=== PATIENT | male | born 1980 | race Caucasian/White ===

== ENCOUNTER 2019-11-17 07:05 | Outpatient (CLI) | payer OTHER, SELFPAY ==
[2019-11-17 07:16] LABS: HCT 47.1 % (40.0-50.0); HGB 16.2 g/dL (13.5-17.5); Mean Corp. HGB Concentration 34.4 g/dL (32.0-36.0); Mean Corpuscular Hemoglobin 31.2 pg (27.0-33.0); Mean Corpuscular Volume 90.6 fL (80-95); Mean Platelet Volume 9.6 fL (8.0-11.0); Platelet Count 188 x1000/uL (130-400); RBC Distribution Width 12.9 % (11.8-14.1); White Blood Cell Count 5.21 k/cumm (4.4-10.8)
[2019-11-17 08:46] LABS: ALT 24 U/L (16-63); AST 25 U/L (15-37); Albumin 4.1 g/dL (3.4-5.0); Alkaline Phosphatase 83 U/L (46-116); Anion Gap 6.7 mmol/L (3-11); BUN 19 mg/dL (7-18); CO2 30.3 mmol/L (21.0-32.0); CREATININE 1.07 mg/dL (0.70-1.30); Calcium 8.6 mg/dL (8.5-10.1); Calculated LDL 174 mg/dL (<100); Chloride 104 mmol/L (98-107); Cholesterol 258 mg/dL (<200); Glucose 104 mg/dL (74-106); HDL Cholesterol 51 mg/dL (40-60); Potassium 4.6 mmol/L (3.5-5.1); Sodium 141 mmol/L (136-145); Total Protein 7.1 g/dL (6.4-8.2); Triglyceride 168 mg/dL (<150)
== END 2019-11-17 07:25 ==
PROVIDERS: PCP Nurse Practitioner; Visit Provider Nurse Practitioner
DX: F32.9 Major depressive disorder, single episode, unspecified (principal); F41.9 Anxiety disorder, unspecified; Z13.220 Encounter for screening for lipoid disorders
CPT/HCPCS: 36415; 80053; 80061; 85027

== ENCOUNTER 2021-08-18 07:24 | Emergency (ER) | payer OTHER, SELFPAY ==
[2021-08-18 07:29] VITALS: BP 137/91; PULSE 71; RESP 18; TEMP 36.9; O2SAT 97
[2021-08-18 08:15] LABS: Abs Immature Grans 0.03 10^3/uL (0.0-0.06); Absolute Basophil Count 0.04 10^3/uL (0.0-0.2); Absolute Eosinophil Count 0.23 10^3/uL (0.0-0.7); Absolute Lymphocyte Count 1.57 10^3/uL (1.2-3.4); Absolute Monocyte Count 0.75 10^3/uL (0.1-0.8); Absolute Neutrophil Count 6.38 10^3/uL (1.2-6.7); Basophils % 0.4; Eosinophils % 2.6; HCT 46.7 % (40.0-50.0); HGB 15.5 g/dL (13.5-17.5); Immature Grans % 0.3; Lymphocytes % 17.4; MCH 30.6 pg (27.0-33.0); MCHC 33.2 % (32.0-36.0); MCV 92.1 fL (80-95); MPV 9.9 fL (8.0-11.0); Monocytes % 8.3; Nucleated RBC 0 %; Platelet Count 173 10^3/uL (130-400); RBC 5.07 10^6/uL (4.36-5.78); RDW 11.9 % (11.8-14.1); RDW-SD 40.4 fL
[2021-08-18 08:18] LABS: Bilirubin Negative (Negative); Blood Moderate (Negative); Clarity Clear (Clear); Glucose Negative (Negative); Ketones Negative (Negative); Leukocyte Esterase Negative (Negative); Nitrite Negative (Negative); Urobilinogen 0.2 EU/dL (Up TO 0.2)
--- NOTE | 2021-08-18 08:23 | W.ED.GENAD ---
Discharge Plan Disposition Patient Disposition: HOME Condition: Improving Discharge Details Clinical Impression: Ureterolithiasis, Creatinine elevation Primary Care Provider: Mariam Carlos ED Provider: Alejandra Nur Home Meds and New Rx's Prescriptions: No Action escitalopram oxalate 10 mg tablet 10 mg PO DAILY Qty: 30 RF: 2 Discharge Instructions Instructions: Kidney Stones (ED), Impaired Kidney Function (ED) Additional Instructions: Please return immediately to the emergency department if you develop any new or worsening symptoms, if your condition does not improve as expected, or if you become otherwise concerned. It is extremely important that you call soon as possible to make an appointment to be seen in follow-up for this visit by your primary care doctor. Please do not take Advil, Aleve, or any NSAIDs until you are cleared to do so by your primary care doctor. Referrals: Mariam Carlos, [employer] [Primary Care Provider] - Medical Decision Making Neftali Gomez is a 41 y/o man with a history of kidney stones in the past presenting to emergency department with continued flank pain after being diagnosed with 5 mm left-sided ureterolithiasis by CT scan on 08/14/2021 at [facility] emergency department. On exam patient is well and nontoxic-appearing. Patient does not appear to be in any discomfort. There is no abdominal tenderness to palpation. Concern for possible creatinine elevation with significant Toradol intake, ureterolithiasis not spontaneously passing now with a 5, other. Doubt UTI. Exam/history at this time is not consistent with acute aortic pathology, sepsis, acute emergent intra-abdominal etiology, testicular pathology. Plan for IV placement, screening labs, UA, will discuss patient with Dr. Lai of urology, attempt to obtain records from [facility]. [facility] records obtained, impression from CT abdomen/pelvis 08/14/2021: Obstructing 5 mm distal left ureter calculus with moderate left hydroureter and mild left pelviectasis. Left perinephric edema. This likely represents sequelae of obstruction. Please correlate for evidence of urinary tract infection. Labs reviewed, creatinine 1.6, WBC 9.0, UA shows 3-5 RBCs negative urine WBC negative nitrate. Concern for creatinine elevated secondary to Toradol use. I discussed patient presentation results with Gaby Vale of urology, who requested renal ultrasound for comparison of hydronephrosis to prior CT scan, agrees no further NSAIDs. Renal ultrasound negative for hydronephrosis. Patient reports that he has been pain-free during his entire ED visit at this time, which is highly unusual given severity of pain and frequency of needing pain meds prior to this morning. Suspect at this point, particularly given resolution of hydronephrosis, that patient has passed stone. Plan for outpatient follow-up with urology and PCP, instructions given for no NSAID use. I had a discussion with Patient regarding return to emergency department precautions, home care, and importance of outpatient follow-up. Pt verbalizes understanding of the plan and is amenable. Patient discharged to home with clear plan for outpatient follow-up. All questions were answered. Disposition decision was made weighing the risks and benefits of hospitalization versus outpatient treatment, the risk for further decompensation, and the patient's wishes. Medical Records Medical records reviewed: Yes I reviewed the patient's medical records. Imaging Data Radiologic Study: Attestation: I personally reviewed and interpreted this imaging study as follows: Radiologist's impression: EXAM: US RENAL CLINICAL HISTORY: known left ureterolithiasis TECHNIQUE: Ultrasound of both kidneys performed using standard protocol. COMPARISON: No exams were available for comparison FINDINGS: KIDNEYS: The left kidney measures 13.2 cm in the right kidney 10.7 cm. Both kidneys exhibit cortical thickness and corticomedullary differentiation. No cysts nor masses. No hydronephrosis nor perinephric fluid. No calculi seen in the kidneys. No solid renal masses. URINARY BLADDER: Prevoid volume is only 10.3 cc No evidence of bladder mass nor diverticuli. Ureterovesical jets: Both identified and appear symmetrical IMPRESSION: 1. No significant ultrasound findings in the kidneys. 2. No calculi seen in either kidney and no hydronephrosis. Also no calculi evident in the nondistended urinary bladder. Lab Data Lab results reviewed: Yes I reviewed the patient's lab results. Labs: Laboratory Tests Range/Units 08/18/21 08/18/21 08/18/21 08:00 08:00 08:00 WBC (4.4-10.8) 10^3/uL 9.00 RBC (4.36-5.78) 10^6/uL 5.07 Hgb (13.5-17.5) g/dL 15.5 Hct (40.0-50.0) % 46.7 MCV (80-95) fL 92.1 MCH (27.0-33.0) pg 30.6 MCHC (32.0-36.0) % 33.2 RDW (11.8-14.1) % 11.9 Plt Count (130-400) 10^3/uL 173 MPV (8.0-11.0) fL 9.9 Immature Gran % 0.3 Neutrophils % 71.0 Lymphocytes % 17.4 Monocytes % 8.3 Eosinophils % 2.6 Basophils % 0.4 Nucleated RBC % % 0 Absolute Neutrophils (1.2-6.7) 10^3/uL 6.38 Absolute Lymphocytes (1.2-3.4) 10^3/uL 1.57 Absolute Monocytes (0.1-0.8) 10^3/uL 0.75 Absolute Eosinophils (0.0-0.7) 10^3/uL 0.23 Absolute Basophils (0.0-0.2) 10^3/uL 0.04 Sodium (136-145) mmol/L 139 Potassium (3.5-5.1) mmol/L 4.4 Chloride (98-107) mmol/L 104 Carbon Dioxide (21.0-32.0) mmol/L 28.7 Anion Gap (3-11) mmol/L 6.3 BUN (7-18) mg/dL 19 H Creatinine (0.70-1.30) mg/dL 1.6 H Estimated GFR/1.73 m2 (mL/min/1.73m2) 47.64 Glucose (74-106) mg/dL 102 Calcium (8.5-10.1) mg/dL 9.0 Total Bilirubin (0.2-1.0) mg/dL 1.0 AST (15-37) U/L 23 ALT (16-63) U/L 20 Alkaline Phosphatase (46-116) U/L 65 Total Protein (6.4-8.2) g/dL 7.1 Albumin (3.4-5.0) g/dL 3.7 Urine Color (Yellow) Straw Urine Clarity (Clear) Clear Urine pH (5-8) 6.0 Ur Specific Milton (1.005-1.025) 1.010 Urine Protein (Negative) mg/dL Negative Urine Ketones (Negative) mg/dL Negative Urine Blood (Negative) Moderate H Urine Nitrite (Negative) Negative Urine Bilirubin (Negative) Negative Urine Urobilinogen (Up TO 0.2) EU/dL 0.2 Ur Leukocyte Esterase (Negative) Negative Urine RBC (0-2) HPF 3-5 H Urine WBC (0-5) HPF Negative Ur Epithelial Cells (Negative) HPF Rare Urine Crystals (Negative) HPF Negative Urine Bacteria (Negative) HPF Negative Urine Casts (Negative) LPF Negative Urine Mucus (Negative) Negative Ur Culture Indicated? No Urine Glucose (Negative) mg/dL Negative HPI General Mode of arrival: ambulatory. Date/Time Provider Initiated Documentation: 08/18/21 07:34. Limitations to Documentation: no limitations. Information obtained by: patient, family, RN notes reviewed and old records reviewed. HPI Narrative: Neftali Gomez is a 41-year-old man with reported history of anxiety presenting to emergency department with flank pain, known kidney stone. Patient is accompanied by his . Patient reports that on 08/14 he developed left-sided inguinal pain, and presented to the [facility] emergency department. Patient has had 2 kidney stones in the past 5 years, and believes the pain was from another kidney stone. Patient underwent CT scan at [facility] demonstrating 5 mm stone, was discharged home on p.o. Toradol. Patient reports that his Toradol was prescribed for every 6 hours, however he has been taking it every 4 hours due to severity of pain when medication wears off. Patient reports that medication has been controlling pain well. He reports that he last took Toradol approximately 5 hours ago, pain is currently 1 out of 10, but states that he has run out of Toradol and presented to the emergency department for Toradol refill. Has also been taking Tylenol for pain, not taking any other meds. Patient reports that at initial onset pain was in his left inguinal area, has since migrated to his left flank. He denies any other pain. Had vomiting with onset of pain, has not had vomiting for past 2 days. Has been hydrating well at home per his report. Patient reports that he had some mild diarrhea yesterday. He denies cough, shortness of breath, numbness, weakness, rash, swelling, dysuria, testicular pain/swelling. He denies recreational drug use, tobacco/nicotine use. Patient reports that he drinks 3-6 beers per night, however has not been drinking since onset of pain/being diagnosed with kidney stone. Related Data Home Medications Medication Instructions Recorded Confirmed escitalopram oxalate 10 mg tablet 10 mg PO DAILY #30 tab 07/15/21 08/18/21 Previous Rx's Medication Instructions Recorded escitalopram oxalate 10 mg tablet 10 mg PO DAILY #30 tab 07/15/21 Allergies Allergy/AdvReac Type Severity Reaction Status Date / Time sertraline [From Zoloft] AdvReac Cognitive Verified 08/18/21 07:34 General Stated Complaint: Urinary TRINO: 3 Review of Systems Narrative: Constitutional: denies fevers Eyes: denies eye pain ENT: denies ear pain, dental pain, sore throat Cardiovascular: denies chest pain, edema Respiratory: denies SOB, cough GI: denies abdominal pain, vomiting, diarrhea : Reports left-sided flank pain, denies scrotal/testicular pain or swelling MSK: denies back pain, neck pain, arthralgias, myalgias Skin: denies rash Neuro: denies headaches, numbness, weakness PFSH All Active Problems (Updated 08/18/21 @ 12:59 by Alejandra Nur MD) Ureterolithiasis (Acute) Creatinine elevation (Acute) Bilateral carpal tunnel syndrome (Acute) Cubital tunnel syndrome on right (Acute) Cubital tunnel syndrome on left (Acute) Medial epicondylitis of left elbow (Acute) Medial epicondylitis of right elbow (Acute) Bilateral elbow joint pain (Acute) Hyperlipidemia (Acute) BABATUNDE (obstructive sleep apnea) (Chronic) Family history of heart disease (Acute) Depression (Chronic) Encounter to establish care (Acute) Adjustment disorder with mixed anxiety and depressed mood (Chronic) Obstructive sleep apnea (Chronic) Medical History Hyperextension injury of right knee (10/08/17) Family History (Updated 04/15/20 @ 13:10 by Gabbi Canales RN) Father Alcohol abuse Heart disease Sister Cancer Other Depression Social History Smoking/Tobacco Use Status: Former Tobacco Use Tobacco: How many years used: 15 Second Hand Exposure: No Smoking risk assessment performed?: Yes Alcohol Intake: current Alcohol Intake frequency: 3 or more drinks per day Alcohol type: beer Drug use: Never Substance use type: does not use Adopted: No Caregiver/Support person: No Foster care: No Household members: spouse and children Housing: house Do you need help understanding health information?: Rarely current occupation: [employer] Sexually active: Yes Do you think of yourself as: straight/heterosexual Current gender identity: male What is your relationship status?: How often do you talk on the phone with friends or family?: three or more times per week How often do you get together with friends or relatives?: once per week How often do you attend confucianist or confucianist services?: 1-3 times per year Do you belong to any clubs or organized social groups?: no Panel score (0-1 are the most socially isolated patients): 2 Cristina/Rastafari: Scientology Seatbelt use: always Helmet use: Yes Helmet use: sometimes Drive intox or ride w/intox putaway driver: No Do you feel safe at home: Yes Do you feel safe in your relationship?: Yes Exam Narrative Exam Narrative: Constitutional: well and [id number], pleasant, conversing normally HENT: head atraumatic/normocephalic/normal inspection, mucous membranes moist Eyes: conjunctiva normal, sclera normal, pupils 3mm b/l Neck: no stridor, normal ROM, trachea midline Resp: normal work of breathing, speaking in full sentences Cardio: normal rate, normal rhythm GI: abdomen soft, non-tender, non-distended Skin: warm, dry, normal color, no rash Neuro: alert, not altered, grossly non-focal, normal tone Ext: no edema Psych: normal mood, normal affect, normal behavior Course Vital Signs Vital signs: Vital Signs Temperature 36.9 C 08/18/21 07:29 Pulse 71 08/18/21 07:29 Respiratory Rate 18 08/18/21 07:29 Blood Pressure 137/91 H 08/18/21 07:29 Pulse Oximetry 97 08/18/21 07:29 Temperature 36.9 C 08/18/21 07:29 Temperature Source Temporal Artery Scan 08/18/21 07:29 Pulse 71 08/18/21 07:29 Respiratory Rate 18 08/18/21 07:29 Respiratory Effort Non-Labored 08/18/21 07:35 Blood Pressure 137/91 H 08/18/21 07:29 Blood Pressure Position Sitting 08/18/21 07:29 Pulse Oximetry 97 08/18/21 07:29 Oxygen Delivery Method Room Air 08/18/21 07:29 Oxygen Flow Rate 0 08/18/21 07:29 Pain Level 1 08/18/21 07:45 Lab/Test Results Lab/Test Results: Laboratory Tests Range/Units 08/18/21 08/18/21 08:00 08:00 WBC (4.4-10.8) 10^3/uL 9.00 RBC (4.36-5.78) 10^6/uL 5.07 Hgb (13.5-17.5) g/dL 15.5 Hct (40.0-50.0) % 46.7 MCV (80-95) fL 92.1 MCH (27.0-33.0) pg 30.6 MCHC (32.0-36.0) % 33.2 RDW (11.8-14.1) % 11.9 Plt Count (130-400) 10^3/uL 173 MPV (8.0-11.0) fL 9.9 Immature Gran % 0.3 Neutrophils % 71.0 Lymphocytes % 17.4 Monocytes % 8.3 Eosinophils % 2.6 Basophils % 0.4 Nucleated RBC % % 0 Absolute Neutrophils (1.2-6.7) 10^3/uL 6.38 Absolute Lymphocytes (1.2-3.4) 10^3/uL 1.57 Absolute Monocytes (0.1-0.8) 10^3/uL 0.75 Absolute Eosinophils (0.0-0.7) 10^3/uL 0.23 Absolute Basophils (0.0-0.2) 10^3/uL 0.04 Urine Color (Yellow) Straw Urine Clarity (Clear) Clear Urine pH (5-8) 6.0 Ur Specific Milton (1.005-1.025) 1.010 Urine Protein (Negative) mg/dL Negative Urine Ketones (Negative) mg/dL Negative Urine Blood (Negative) Moderate H Urine Nitrite (Negative) Negative Urine Bilirubin (Negative) Negative Urine Urobilinogen (Up TO 0.2) EU/dL 0.2 Ur Leukocyte Esterase (Negative) Negative Urine Glucose (Negative) mg/dL Negative
[2021-08-18 08:25] LABS: Bacteria Negative HPF (Negative); C & S Indicated? No; Casts Negative LPF (Negative); Crystals Negative HPF (Negative); Epithelial Cells Rare HPF (Negative); Mucus Negative (Negative); WBC Negative HPF (0-5)
[2021-08-18 08:28] LABS: ALT 20 U/L (16-63); AST 23 U/L (15-37); Albumin 3.7 g/dL (3.4-5.0); Alkaline Phosphatase 65 U/L (46-116); Anion Gap 6.3 mmol/L (3-11); BUN 19 mg/dL (7-18); CO2 28.7 mmol/L (21.0-32.0); CREATININE 1.6 mg/dL (0.70-1.30); Chloride 104 mmol/L (98-107); Estimated GFR 47.64 (mL/min/1.73m2); Glucose 102 mg/dL (74-106); Potassium 4.4 mmol/L (3.5-5.1); Sodium 139 mmol/L (136-145); Total Protein 7.1 g/dL (6.4-8.2)
[2021-08-18] MEDS: Normal Saline 1,000 ML 1000 ML IV (08:52)
[2021-08-18 08:53] VITALS: BP 129/78; PULSE 58; RESP 14; TEMP 37.2; O2SAT 98
[2021-08-18 10:18] VITALS: BP 116/72; PULSE 99; RESP 14; TEMP 37; O2SAT 98
--- NOTE | 2021-08-18 10:30 | DI.US_ITS ---
Exam(s) US RENAL EXAM: US RENAL CLINICAL HISTORY: known left ureterolithiasis TECHNIQUE: Ultrasound of both kidneys performed using standard protocol. COMPARISON: No exams were available for comparison FINDINGS: KIDNEYS: The left kidney measures 13.2 cm in the right kidney 10.7 cm. Both kidneys exhibit cortical thicknes s and corticomedullary differentiation. No cysts nor masses. No hydronephrosis nor perinephric flui d. No calculi seen in the kidneys. No solid renal masses. URINARY BLADDER: Prevoid volume is only 10.3 cc No evidence of bladder mass nor diverticuli. Ureterovesical jets: Both identified and appear symmetrical IMPRESSION: 1. No significant ultrasound findings in the kidneys. 2. No calculi seen in either kidney and no hydronephrosis. Also no calculi evident in the nondisten ded urinary bladder. DATA REPOSITORY:
[2021-08-18 12:04] VITALS: BP 121/79; PULSE 61; RESP 14; TEMP 37; O2SAT 99
== END 2021-08-18 13:23 | disposition home or self-care (01) ==
PROVIDERS: Emergency Provider Student in an Organized Health Care Education/Training Program; PCP Nurse Practitioner
DX: N20.1 Calculus of ureter (principal); R79.89 Other specified abnormal findings of blood chemistry; Z87.442 Personal history of urinary calculi
CPT/HCPCS: 36415; 76770; 80053; 96360; 99284; 81003; 81015; 85025

== ENCOUNTER 2021-08-26 10:38 | Outpatient (CLI) | payer OTHER, SELFPAY ==
--- NOTE | 2021-08-26 10:30 | RT.EKG_ITS ---
APPROVED REPORT Exam: Resting ECG Reason for Exam: chest pain Patient Location: O HR:65 bpm ECG Measurements Heart Rate 65 AXIS AZ 145 P 18 QRSd 95 QRS -12 QT 362 T 13 QTc 378 Conclusion Sinus rhythm...normal P axis, V-rate 60- 99 ST elev, probable normal early repol pattern...ST elevation, age<55
== END 2021-08-26 10:39 | disposition home or self-care (01) ==
LOC: DI.KIM 10:39
PROVIDERS: PCP Nurse Practitioner; Visit Provider Nurse Practitioner
DX: R07.89 Other chest pain (principal)
CPT/HCPCS: 93010

== ENCOUNTER 2021-08-28 01:41 | Outpatient (CLI) | payer OTHER, SELFPAY ==
--- NOTE | 2021-08-28 08:00 | ETT_ITS ---
APPROVED REPORT Exam: Exercise Treadmill Patient Location: Out-Patient Room/Bed: Stress Nurse: Liliana Matthew RN Ordering Provider:SWATI NUGENT, Contact Number: [phone] BMI: 25.82 Baseline Rhythm: Sinus Rhythm Indications: Hyperlipidemia, chest pain, family h/o heart disease Medical History Medical History: Hyperlipidemia, BABATUNDE (no CPAP per pt), depression Cardiac Medications: None Allergies: Sertraline Cardiac Risk Factors: Hyperlipidemia, tobacco use (former), family hx Previous Cardiac Procedures: None Pretest Chest Pain Characteristics: Mild chest pressure Exercise History: Sedentary Physical Disabilities: None Lung Sounds: Clear to auscultation Heart Sounds: Regular Stress Test Details Test: Exercise stress testing was performed using a Ki protocol. Rest Stress HR Resting HR Supine: 67 bpm Max Heart Rate (APMHR): 178 bpm Resting HR Standin bpm Target HR (85% APMHR): 151 bpm Max HR Achieved: 160 bpm % of APMHR: 89 Recovery HR: 88 bpm HR response to stress: Normal HR response to stress BP Resting BP Supine: 122/80 mmHg Resting BP Standin/80 mmHg Max BP: 142/80 mmHg Recovery BP: 122/80 mmHg BP response to stress: Blunted blood pressure response to stress. ECG Resting ECG: Sinus Rhythm Ectopy: None Stress ECG: Sinus Tachycardia ST Change: No significant ST segment changes noted Arrhythmia: None Recovery ECG: Sinus Rhythm Recovery ST Change: No significant ST segment changes noted Recovery Arrhythmia: None Clinical Reason for Termination: Fatigue Stress Symptoms: General Fatigue Exercise duration: 12 min50 sec Highest Stage Reached: Stage 5: 5.0 mph at 18% grade. Exercise capacity: 14.05 METs Isidro Treadmill Score: 12.2 Rate Pressure Product: [id number] Stress ECG Conclusion 1. Resting electrocardiogram was normal 2. Patient exercised on the Ki protocol and completed a workload of 14.05 METS, limited by fatigue 3. Normal hemodynamic response to exercise. The patient achieved 89% of predicted heart rate for age 4. Electrocardiographically there was no evidence of myocardial ischemia 5. There were no significant dysrhythmias Isidro Treadmill Score is 12.2 which is Low risk. Stress Test Summary STAGE Time (mins) Speed (mph) Grade (%) HR BP SYMPTOMS METS Supine 67 122/80 Standing 77 124/80 SpO2 96% 1 3 1.7 10 103 126/82 SpO2 97% 4.6 2 6 2.5 12 117 128/80 SpO2 97% 7 3 9 3.4 14 130 132/82 SpO2 98% 10.2 4 12 4.2 16 145 134/86 SpO2 98% 12.9 5 15 5.0 18 160 SpO2 98% 17.2 1 min recovery 132 136/84 SpO2 98% 3 min recovery 98 142/80 SpO2 98% 6 min recovery 88 122/80 SpO2 98% Pt felt mild chest pressure prior to testing. Remained mild throughout testing and recovery. Pt dann ated testing well and no other signs/symptoms observed or reported.
== END 2021-08-28 02:01 ==
PROVIDERS: PCP Nurse Practitioner; Visit Provider Nurse Practitioner
DX: E78.5 Hyperlipidemia, unspecified (principal); Z87.891 Personal history of nicotine dependence; R07.9 Chest pain, unspecified; Z82.49 Family history of ischemic heart disease and other diseases of the circulatory system
CPT/HCPCS: 93017

== ENCOUNTER 2021-09-01 04:13 | Outpatient (CLI) | payer OTHER, SELFPAY ==
[2021-09-01 15:42] LABS: Anion Gap 6.2 mmol/L (3-11); BUN 15 mg/dL (7-18); CO2 31.8 mmol/L (21.0-32.0); CREATININE 1.1 mg/dL (0.70-1.30); Calcium 9.1 mg/dL (8.5-10.1); Calculated LDL 176 mg/dL (<100); Chloride 101 mmol/L (98-107); Cholesterol 265 mg/dL (<200); Glucose 92 mg/dL (74-106); HDL Cholesterol 62 mg/dL (40-60); Potassium 4.4 mmol/L (3.5-5.1); Sodium 139 mmol/L (136-145); Triglyceride 139 mg/dL (<150)
== END 2021-09-01 04:14 | disposition home or self-care (01) ==
LOC: LBO 04:14
PROVIDERS: PCP Nurse Practitioner; Visit Provider Nurse Practitioner
DX: E78.5 Hyperlipidemia, unspecified (principal); G47.33 Obstructive sleep apnea (adult) (pediatric)
CPT/HCPCS: 36415; 80048; 80061

== ENCOUNTER 2021-09-24 01:15 | Outpatient (CLI) | payer OTHER, SELFPAY ==
--- NOTE | 2021-09-24 07:30 | DI.US_ITS ---
APPROVED REPORT EXAM: Comprehensive 2D, Doppler, and color-flow Echocardiogram Patient Location: Out-Patient Cattle Rancher: Kamilla Lu RDCS (AE) Indications: Chest pain, F/H TX, Hyperlipidemia Conclusion Normal left ventricular wall thickness and chamber size. Estimated ejection fraction is 55 to 60%. Wall motion is normal Normal right ventricular size and systolic function Both atria are normal in size There is no structural or hemodynamically significant valvular disease Wall motion Left Ventricle The left ventricle is normal size. The left ventricular systolic function is normal. The left ventric ular ejection fraction is within the normal range. There is normal left ventricular wall thickness. T here is normal LV segmental wall motion. LVEF is 55-60%. Right Ventricle The right ventricle is normal size. The right ventricular systolic function is normal. Atria The left atrium size is normal. The right atrium size is normal. Aortic Valve The aortic valve is normal in structure. There is no aortic valvular stenosis. No aortic regurgitatio n is present. Mitral Valve The mitral valve is normal in structure. Trace to mild mitral regurgitation. Tricuspid Valve The tricuspid valve is normal in structure. Trace tricuspid regurgitation. Pulmonic Valve The pulmonary valve is normal in structure. Trace pulmonic regurgitation. Great Vessels The aortic root is normal in size. The ascending aorta is normal in size. IVC is normal in size and c ollapses >50% with inspiration. Pericardium There is no pericardial effusion. 2D Dimensions IVSD d PLAX 0.97 cm M: 0.6-1.2 LV Vol A2C d MOD 134.3 mL LVPW d PLAX 0.98 cm M: 0.6 - 1.2 LV Vol A4C d MOD 133.4 mL LVID d PLAX 4.69 cm M: 4.2 - 5.8 LA vol/ BSA A2C s A-L 25.5 mL/m2 LVDs 3.20 cm M: 2.5 - 4.0 LA vol/ BSA A4C s A-L 22.2 mL/m2 Ao Root d 3.38 cm M: 3.1 - 3.7 LA Vol/ BSA Biplane s A-L 23.8 mL/m2 RA Area A4C 11.69 cm2 LA Area A4C s MOD 16.00 cm2 RA Vol/ BSA A4C s A-L 12.8 mL/m2 LA Area A2C s MOD 17.12 cm2 Ao Asc Diam d 3.40 cm M: 2.6 - 3.4 LV EF A4C MOD 60.9 % LV EF Teichholz 59.6 % LV EF A2C MOD 59.4 % LVEF (Black's) 59.60 % M: 52 - 72 LV EF Biplane MOD 59.6 % LV Volume 100.58 mL M: 62 - 150 SV 80.19 mL LV Volume Index 49.79 mL/m2 M: 34 - 74 SV Index 39.71 mL/m2 LV Vol Biplane MOD 134.5 mL FS 31.60 % M-Mode TAPSE 1.82 cm (M/F) >1.7 LV Diastology MV E' medial 0.088 (>0.07 m/s) E/A Ratio 1.3 LV E/e MED 8.00 (<14) MV E Vmax 0.71 (0.4-1.3 m/s) MV E' lateral 0.092 (>0.1 m/s) MV A Vmax 0.55 (0.4-1.3 m/s) LV E/e LAT 7.70 (<14) MV E/A Ratio 1.20 MV E/E' medial 8.03 MV E/E' lateral 7.71 Aortic Valve LVOT Area 2.92 cm2 AoV Area Vmax 2.72 cm2 LVOT Vmax 1.03 m/s AoV Area/ BSA (Vmax) 1.35 cm2/m2 LVOT Mean Jason. 0.65 m/s TREY Mean Jason. 2.58 cm2 LVOT Peak Grad 4.2 mmHg TREY Mean Jason. Index 1.28 cm2/m2 LVOT Mean Grad 2.0 mmHg LVOT VTI 0.218 m LVOT Diam s 1.90 cm AoV Vmax 1.10 m/s Velocity Ratio 0.93 AoV Mean Jason. 0.74 m/s AoV Peak Grad 4.9 mmHg LVOT SV 63.52 mL AoV Mean Grad 2.4 mmHg AoV VTI 0.215 m AoV Area VTI 2.95 cm2 AoV Area/ BSA (VTI) 1.46 cm/m2 Mitral Valve MV DT 207 (160-240 msec) MV PHT 60 msec MV Area PHT 3.66 cm2 MV VTI 0.217 m MV Area VTI 2.92 (4.0-6.0 cm2) Pulmonary Valve PV Vmax 0.77 (0.5-1.5 m/s) RVOT Peak Gr. 1.13 mmHg PV Peak Grad 2.4 mmHg RVOT Mean Gr. 0.55 mmHg PV Mean Grad 1.3 mmHg RVOT VTI 0.114 m PV VTI 0.179 m RVOT Vmax 0.53 m/s Tricuspid Valve TR Peak Grad 19.7 mmHg TR Vmax 2.22 m/s RA Pressure 3.00 mmHg RVSP (TR) 22.7 mmHg
== END 2021-09-24 01:35 ==
PROVIDERS: PCP Nurse Practitioner; Visit Provider Nurse Practitioner
DX: R07.9 Chest pain, unspecified (principal); Z82.49 Family history of ischemic heart disease and other diseases of the circulatory system; E78.5 Hyperlipidemia, unspecified
CPT/HCPCS: 93306

== ENCOUNTER 2021-10-02 08:00 | Outpatient (CLI) | payer OTHER, SELFPAY | END 2021-10-02 08:01 | disposition home or self-care (01) | LOC: DI.CARD 08:01 | PROVIDERS: PCP Nurse Practitioner; Visit Provider Internal Medicine Cardiovascular Disease | DX: R69 Illness, unspecified (principal) | CPT/HCPCS: 93010 ==

== ENCOUNTER 2021-11-13 02:37 | Outpatient (CLI) | payer OTHER, SELFPAY ==
[2021-11-13 08:42] LABS: ALT 29 U/L (16-63); AST 28 U/L (15-37); Albumin 4.5 g/dL (3.4-5.0); Alkaline Phosphatase 66 U/L (46-116); Anion Gap 4.7 mmol/L (3-11); BUN 18 mg/dL (7-18); Bilirubin, Total 1.9 mg/dL (0.2-1.0); CO2 32.3 mmol/L (21.0-32.0); CREATININE 1.2 mg/dL (0.70-1.30); Calcium 9.3 mg/dL (8.5-10.1); Calculated LDL 101 mg/dL (<100); Chloride 98 mmol/L (98-107); Cholesterol 198 mg/dL (<200); Glucose 118 mg/dL (74-106); HDL Cholesterol 75 mg/dL (40-60); Potassium 4.7 mmol/L (3.5-5.1); Sodium 135 mmol/L (136-145); Total Protein 7.7 g/dL (6.4-8.2); Triglyceride 111 mg/dL (<150)
== END 2021-11-13 02:38 | disposition home or self-care (01) ==
LOC: LBO 02:37
PROVIDERS: PCP Nurse Practitioner; Visit Provider Internal Medicine Cardiovascular Disease
DX: E78.5 Hyperlipidemia, unspecified (principal)
CPT/HCPCS: 36415; 80053; 80061

== ENCOUNTER 2022-12-04 02:03 | Outpatient (CLI) | payer BC, SELFPAY ==
[2022-12-04 09:30] LABS: ALT 31 U/L (16-63); AST 27 U/L (15-37); Albumin 3.9 g/dL (3.4-5.0); Alkaline Phosphatase 69 U/L (46-116); Anion Gap 4.8 mmol/L (3-11); BUN 16 mg/dL (7-18); Bilirubin, Total 1.3 mg/dL (0.2-1.0); CO2 32.2 mmol/L (21.0-32.0); CREATININE 1.1 mg/dL (0.70-1.30); Calcium 8.8 mg/dL (8.5-10.1); Calculated LDL 103 mg/dL (<100); Chloride 106 mmol/L (98-107); Cholesterol 178 mg/dL (<200); Estimated GFR 85.42 (mL/min/1.73m2); Glucose 111 mg/dL (74-106); HDL Cholesterol 57 mg/dL (40-60); Potassium 4.1 mmol/L (3.5-5.1); Sodium 143 mmol/L (136-145); Total Protein 6.9 g/dL (6.4-8.2); Triglyceride 90 mg/dL (<150)
== END 2022-12-04 02:04 | disposition home or self-care (01) ==
PROVIDERS: PCP Nurse Practitioner; Visit Provider Nurse Practitioner
DX: E78.5 Hyperlipidemia, unspecified (principal)
CPT/HCPCS: 36415; 80053; 80061

== ENCOUNTER 2022-12-18 01:38 | Outpatient (CLI) | payer BC, SELFPAY ==
[2022-12-18 12:06] LABS: Hemoglobin A1C 5.6 % (<5.7)
== END 2022-12-18 01:39 | disposition home or self-care (01) ==
LOC: LBO 01:39
PROVIDERS: PCP Nurse Practitioner; Visit Provider Nurse Practitioner
DX: R73.01 Impaired fasting glucose (principal)
CPT/HCPCS: 36415; 83036

== ENCOUNTER 2024-03-31 01:53 | Outpatient (CLI) | payer BC, SELFPAY ==
[2024-03-31 08:31] LABS: Hemoglobin A1C 5.5 % (<5.7)
[2024-03-31 08:36] LABS: ALT 50 U/L (16-63); AST 44 U/L (15-37); Albumin 3.9 g/dL (3.4-5.0); Alkaline Phosphatase 92 U/L (46-116); Anion Gap 6.3 mmol/L (3-11); BUN 17 mg/dL (7-18); Bilirubin, Total 1.13 mg/dL (0.2-1.0); CO2 29.7 mmol/L (21.0-32.0); CREATININE 1.2 mg/dL (0.70-1.30); Calcium 8.8 mg/dL (8.5-10.1); Calculated LDL 75 mg/dL (<100); Chloride 106 mmol/L (98-107); Cholesterol 167 mg/dL (<200); Glucose 109 mg/dL (74-106); HDL Cholesterol 77 mg/dL (40-60); Potassium 4.1 mmol/L (3.5-5.1); Sodium 142 mmol/L (136-145); Total Protein 6.9 g/dL (6.4-8.2); Triglyceride 75 mg/dL (<150)
== END 2024-03-31 01:54 | disposition home or self-care (01) ==
PROVIDERS: PCP Nurse Practitioner; Referring Provider Nurse Practitioner; Visit Provider Nurse Practitioner
DX: E78.5 Hyperlipidemia, unspecified (principal); R73.01 Impaired fasting glucose
CPT/HCPCS: 36415; 80053; 80061; 83036

== ENCOUNTER 2024-12-15 09:11 | Outpatient (CLI) | payer BC, SELFPAY ==
[2024-12-15 08:10] LABS: Hemoglobin A1C 5.6 % (<5.7)
[2024-12-15 08:19] LABS: ALT 34 U/L (16-63); AST 30 U/L (15-37); Alkaline Phosphatase 69 U/L (46-116); Anion Gap 5.2 mmol/L (3-11); BUN 19 mg/dL (7-18); Bilirubin, Total 1.7 mg/dL (0.2-1.0); CO2 29.8 mmol/L (21.0-32.0); CREATININE 1.2 mg/dL (0.70-1.30); Calculated LDL 78 mg/dL (<100); Chloride 108 mmol/L (98-107); Cholesterol 172 mg/dL (<200); Glucose 113 mg/dL (74-106); HDL Cholesterol 79 mg/dL (>or=40); Potassium 4.5 mmol/L (3.5-5.1); Sodium 143 mmol/L (136-145); Triglyceride 75 mg/dL (<150)
[2024-12-18 09:17] LABS: Hepatitis C Ab w Rflx HCV PCR Negative (Negative)
== END 2024-12-15 09:12 | disposition home or self-care (01) ==
LOC: LBO 09:12
PROVIDERS: PCP Nurse Practitioner Family; Visit Provider Nurse Practitioner
DX: R79.89 Other specified abnormal findings of blood chemistry (principal); E78.5 Hyperlipidemia, unspecified; R73.01 Impaired fasting glucose
CPT/HCPCS: 36415; 80053; 80061; 86803; 83036